=== PATIENT | female | born 2000 | race African-American/Black ===

== ENCOUNTER 2022-10-04 08:55 | Emergency (ER) | payer BC ==
[2022-10-04 09:48] LABS: #Eosinphils 0.2 10x3/uL (0.0-0.5); #Monocytes 0.3 10x3/uL (0.0-1.1); #Neutrophils 3.5 10x3/uL (1.5-8.4); %Basophils 0.4 % (0.0-2.0); %Eosinophils 3.4 % (0.0-6.0); %Lymphocytes 28.1 % (18.0-47.0); %Monocytes 5.4 % (0.0-10.0); %Neutrophils 62.5 % (40.0-75.0); Hemoglobin 13.2 g/dL (12.0-15.5); Mean Corpuscular HGB CONC 34.6 g/dL (32.0-36.0); Mean Corpuscular Hemoglobin 30.2 pg (27.0-33.0); Mean Corpuscular Volume 87.4 fl (81.6-98.3); Mean Platelet Volume 9.8 fl (7.4-10.4); Platelet Count 258 10x3/uL (150-450); RBC Distribution Width 12.1 % (11.5-14.5); Red Blood Cell (RBC) Count 4.37 10x6/uL (3.90-5.03); White Blood Cell (WBC) Count 5.6 10x3/uL (3.5-10.5)
[2022-10-04 10:01] LABS: ALT (SGPT) 18 U/L (8-55); AST (SGOT) 12 U/L (5-34); Albumin 3.8 g/dL (3.5-5.0); Alkaline Phosphatase 49 U/L (40-110); Anion Gap 14 mmol/L (10-20); BUN (Urea Nitrogen) 11 mg/dL (7.0-18.7); Bilirubin, Total 0.5 mg/dL (0.2-1.2); Calc. Creatinine Clearance 0 mL/min (70-130); Calcium 9.5 mg/dL (7.8-10.44); Carbon Dioxide 25 mmol/L (22-29); Chloride 104 mmol/L (98-107); Estimated GFR 121; Globulin 3.1 g/dL (2.4-3.5); Glucose 260 mg/dL (70-105); Magnesium 1.5 mg/dL (1.6-2.6); Potassium 4.7 mmol/L (3.5-5.1); Protein, Total 6.9 g/dL (6.0-8.3); Sodium 138 mmol/L (136-145)
== END 2022-10-04 10:15 | disposition home or self-care (01) ==
LOC: CSHERS 08:55
DX: R19.7 Diarrhea, unspecified (principal); E10.9 Type 1 diabetes mellitus without complications
CPT/HCPCS: 36415; 80053; 83735; 85025; 99284

== ENCOUNTER 2023-01-15 09:21 | Emergency (ER) | payer BC ==
[2023-01-15 10:52] LABS: BHCG - Serum Negative (NEGATIVE); Pregs Control Background? CLEAR/WHITE (CLR/WHITE); Pregs Control Bar Appear? YES (CONTROL BAR)
[2023-01-15] MEDS ORDERED: diphenhydrAMINE 50 MG/ML VIAL ONE (10:57)
[2023-01-15] MEDS ORDERED: Prochlorperazine 10 MG/2 ML VIAL ONE (10:57)
[2023-01-15 11:24] LABS: #Monocytes 0.3 10x3/uL (0.0-1.1); #Neutrophils 3.3 10x3/uL (1.5-8.4); %Basophils 0.5 % (0.0-2.0); %Eosinophils 0.7 % (0.0-6.0); %Lymphocytes 16.3 % (18.0-47.0); %Monocytes 7.5 % (0.0-10.0); %Neutrophils 74.8 % (40.0-75.0); Hemoglobin 14.4 g/dL (12.0-15.5); Mean Corpuscular HGB CONC 34.8 g/dL (32.0-36.0); Mean Corpuscular Hemoglobin 29.2 pg (27.0-33.0); Mean Platelet Volume 10.7 fl (7.4-10.4); Platelet Count 239 10x3/uL (150-450); RBC Distribution Width 11.6 % (11.5-14.5); Red Blood Cell (RBC) Count 4.93 10x6/uL (3.90-5.03); White Blood Cell (WBC) Count 4.4 10x3/uL (3.5-10.5)
[2023-01-15 11:54] LABS: Anion Gap 18 mmol/L (10-20); BUN (Urea Nitrogen) 11 mg/dL (7.0-18.7); Calc. Creatinine Clearance 0 mL/min (70-130); Calcium 9.2 mg/dL (7.8-10.44); Carbon Dioxide 22 mmol/L (22-29); Chloride 98 mmol/L (98-107); Estimated GFR 119; Glucose 267 mg/dL (70-105); Magnesium 1.4 mg/dL (1.6-2.6); Potassium 4.1 mmol/L (3.5-5.1); Sodium 134 mmol/L (136-145)
[2023-01-15] MEDS ORDERED: Magnesium 2 GM/50 ML BAG (IN WATER) ONE (12:07)
[2023-01-15] MEDS ORDERED: Propranolol HCl 20 MG TAB PO SCH (13:00)
== END 2023-01-15 15:14 | disposition home or self-care (01) ==
LOC: CSHERS 09:21
DX: I47.9 Paroxysmal tachycardia, unspecified (principal); G43.909 Migraine, unspecified, not intractable, without status migrainosus; R00.2 Palpitations; E10.9 Type 1 diabetes mellitus without complications
CPT/HCPCS: 71045; 80048; 83735; 84443; 84703; 85025; 93005; 96365; 96366; 96367; 96375; J0780; J1200; J3475

== ENCOUNTER 2023-07-14 09:12 | Outpatient (CLI) | payer BC | END 2023-07-14 09:13 | disposition home or self-care (01) | LOC: CSHRAD 09:12 | PROVIDERS: ATTEND Family Medicine | DX: M25.561 Pain in right knee (principal); M25.562 Pain in left knee; M17.11 Unilateral primary osteoarthritis, right knee ==

== ENCOUNTER 2023-07-29 09:02 | Observation (INO) | payer BC ==
[2023-07-29 09:21] LABS: Bilirubin 3+ (Negative); Blood, Urine 250 (Negative); Clarity Cloudy (Clear); Glucose, Urine (Dipstick) >=1000 mg/dL (Negative); Ketone, Urine 150 mg/dL (Negative); Leukocyte 500 (Negative); Nitrite Positive (Negative); Protein, Urine (Dipstick) 100 mg/dl (Neg-Trace); Specific Gravity, Urine 1.015 (1.005-1.030)
[2023-07-29 09:31] LABS: CAUTI Indications for Culture Dysuria,urgency,freq; RBC/HPF Greater than 50 HPF (0-3); WBC/HPF Greater Than 50 HPF (0-3)
[2023-07-29 09:32] LABS: Bacteria/HPF 3+ HPF (None Seen); Squamous Epithelial 0-3 HPF (0-3)
[2023-07-29 09:34] LABS: Urine Culture Reflex Yes Yes
[2023-07-29 09:50] LABS: #Eosinphils 0.1 10x3/uL (0.0-0.5); #Monocytes 0.5 10x3/uL (0.0-1.1); #Neutrophils 7.4 10x3/uL (1.5-8.4); %Basophils 0.4 % (0.0-2.0); %Monocytes 4.8 % (0.0-10.0); %Neutrophils 77.6 % (40.0-75.0); Hematocrit 41.4 % (34.9-44.5); Hemoglobin 14.1 g/dL (12.0-15.5); Mean Corpuscular HGB CONC 34.1 g/dL (32.0-36.0); Mean Corpuscular Hemoglobin 29.6 pg (27.0-33.0); Mean Corpuscular Volume 86.8 fl (81.6-98.3); Mean Platelet Volume 10.5 fl (7.4-10.4); Platelet Count 244 10x3/uL (150-450); RBC Distribution Width 11.8 % (11.5-14.5); Red Blood Cell (RBC) Count 4.77 10x6/uL (3.90-5.03); White Blood Cell (WBC) Count 9.6 10x3/uL (3.5-10.5)
[2023-07-29] MEDS ORDERED: cefTRIAXone (ROCEPHIN) 2 GM VIAL ONE (09:52)
[2023-07-29 10:05] LABS: ALT (SGPT) 12 U/L (8-55); AST (SGOT) 13 U/L (5-34); Albumin 3.7 g/dL (3.5-5.0); Alkaline Phosphatase 57 U/L (40-110); BUN (Urea Nitrogen) 9 mg/dL (7.0-18.7); Bilirubin, Total 0.3 mg/dL (0.2-1.2); Calc. Creatinine Clearance 0 mL/min (70-130); Calcium 9.1 mg/dL (7.8-10.44); Carbon Dioxide 21 mmol/L (22-29); Chloride Less than 65 mmol/L (98-107); Estimated GFR 105; Globulin 3.8 g/dL (2.4-3.5); Glucose 347 mg/dL (70-105); Protein, Total 7.5 g/dL (6.0-8.3)
[2023-07-29 10:18] LABS: Potassium 4.3 mmol/L (3.5-5.1); Sodium 135 mmol/L (136-145)
[2023-07-29 10:27] LABS: Actual Bicarbonate (HCO3v) 23.3 mEq/L (22-28); Base Excess -2.2 mEq/L (-2 - +2); Calcium, Ionized (venous) 1.13 mmol/L (1.16-1.32); Chloride (VBG) 98 mmol/L (98-106); Hematocrit-VBG 43 % (36.0-47.0); Hemoglobin (Hb) 14.6 g/dL (11.7-15.5); Potassium (VBG) 4.29 mmol/L (3.70-5.30); Puncture Site Other Site; Sodium 136 mmol/L (133-146); pH (venous) 7.357 (7.32-7.43)
[2023-07-29 10:34] LABS: Phosphorus 3.5 mg/dL (2.3-4.7)
[2023-07-29 10:35] LABS: Magnesium 1.4 mg/dL (1.6-2.6)
[2023-07-29 11:01] LABS: Anion Gap 19 mmol/L (10-20); BUN (Urea Nitrogen) 10 mg/dL (7.0-18.7); Calc. Creatinine Clearance 0 mL/min (70-130); Calcium 9.6 mg/dL (7.8-10.44); Carbon Dioxide 19 mmol/L (22-29); Chloride 101 mmol/L (98-107); Estimated GFR 106; Glucose 345 mg/dL (70-105); Potassium 4.4 mmol/L (3.5-5.1); Sodium 135 mmol/L (136-145)
[2023-07-29] MEDS ORDERED: Magnesium 2 GM/50 ML BAG (IN WATER) ONE (13:18)
[2023-07-29 13:46] LABS: BHCG - Serum Negative (NEGATIVE); Pregs Control Background? CLEAR/WHITE (CLR/WHITE); Pregs Control Bar Appear? YES (CONTROL BAR)
[2023-07-29 15:26] VITALS: BMI 39.3
[2023-07-29] MEDS ORDERED: Glucagon 1 MG/ML KIT IM PRN (15:47)
[2023-07-29] MEDS ORDERED: Dextrose 50% Abboject 50 ML SYRINGE SLOW IVP PRN (15:47)
[2023-07-29] MEDS ORDERED: Dextrose 5% in Water 1,000 ML IV PRN (15:47)
[2023-07-29] MEDS ORDERED: Acetaminophen 325 MG TAB PO PRN (15:47)
[2023-07-29] MEDS ORDERED: Metoclopramide HCl 10 MG/2 ML VIAL IVP PRN (15:49)
[2023-07-29] MEDS: Sodium Chloride 0.9% 1,000 ML IV SCH (17:24)
[2023-07-29] MEDS: HumaLOG 300 UNITS/3 ML VIAL SC PRN ×2 (17:25→21:11)
[2023-07-29 19:48] LABS: Anion Gap 14 mmol/L (10-20); BUN (Urea Nitrogen) 7 mg/dL (7.0-18.7); Calc. Creatinine Clearance 202 mL/min (70-130); Calcium 8.9 mg/dL (7.8-10.44); Carbon Dioxide 24 mmol/L (22-29); Chloride 103 mmol/L (98-107); Estimated GFR 122; Glucose 223 mg/dL (70-105); Magnesium 1.6 mg/dL (1.6-2.6); Potassium 3.8 mmol/L (3.5-5.1); Sodium 137 mmol/L (136-145)
[2023-07-29] MEDS ORDERED: Lantus 1000 UNITS/10 ML VIAL SC SCH (21:00)
[2023-07-29] MEDS: Famotidine 20 MG TAB PO SCH (21:09)
[2023-07-29] MEDS ORDERED: Potassium Chloride 20 MEQ TAB PO SCH (21:30)
[2023-07-29] MEDS ORDERED: Magnesium Sulfate/D5W 1 GM in Premix 1 BAG IVPB SCH (21:30)
[2023-07-29] MEDS ORDERED: Magnesium Sulfate/D5W 1 GM/100 ML BAG IVPB SCH (21:30)
[2023-07-29 23:21] LABS: Anion Gap 14 mmol/L (10-20); BUN (Urea Nitrogen) 7 mg/dL (7.0-18.7); Calc. Creatinine Clearance 208 mL/min (70-130); Calcium 8.7 mg/dL (7.8-10.44); Carbon Dioxide 22 mmol/L (22-29); Chloride 103 mmol/L (98-107); Estimated GFR 125; Glucose 215 mg/dL (70-105); Magnesium 1.6 mg/dL (1.6-2.6); Potassium 3.4 mmol/L (3.5-5.1); Sodium 136 mmol/L (136-145)
[2023-07-30] MEDS: Sodium Chloride 0.9% 1,000 ML IV SCH ×2 (00:44→09:36)
[2023-07-30] MEDS: HumaLOG 300 UNITS/3 ML VIAL SC PRN ×4 (01:33→16:24)
[2023-07-30 04:19] LABS: Anion Gap 13 mmol/L (10-20); BUN (Urea Nitrogen) 6 mg/dL (7.0-18.7); Calc. Creatinine Clearance 224 mL/min (70-130); Calcium 8.5 mg/dL (7.8-10.44); Carbon Dioxide 21 mmol/L (22-29); Chloride 106 mmol/L (98-107); Estimated GFR 127; Glucose 207 mg/dL (70-105); Magnesium 1.9 mg/dL (1.6-2.6); Potassium 3.8 mmol/L (3.5-5.1); Sodium 136 mmol/L (136-145)
[2023-07-30 04:26] LABS: #Eosinphils 0.1 10x3/uL (0.0-0.5); #Monocytes 0.5 10x3/uL (0.0-1.1); #Neutrophils 5.2 10x3/uL (1.5-8.4); %Basophils 0.5 % (0.0-2.0); %Eosinophils 1.6 % (0.0-6.0); %Lymphocytes 29.4 % (18.0-47.0); %Monocytes 5.8 % (0.0-10.0); %Neutrophils 62.5 % (40.0-75.0); Hematocrit 34.9 % (34.9-44.5); Mean Corpuscular HGB CONC 34.4 g/dL (32.0-36.0); Mean Corpuscular Hemoglobin 29.6 pg (27.0-33.0); Mean Corpuscular Volume 86.2 fl (81.6-98.3); Mean Platelet Volume 10.7 fl (7.4-10.4); Platelet Count 218 10x3/uL (150-450); RBC Distribution Width 11.9 % (11.5-14.5); Red Blood Cell (RBC) Count 4.05 10x6/uL (3.90-5.03); White Blood Cell (WBC) Count 8.3 10x3/uL (3.5-10.5)
[2023-07-30] MEDS ORDERED: Lantus 1000 UNITS/10 ML VIAL SC SCH (09:00)
[2023-07-30] MEDS: Famotidine 20 MG TAB PO SCH (09:30)
[2023-07-30] MEDS ORDERED: cefTRIAXone\\ROCEPHIN 2 GM in Sodium Chloride 0.9% 100 ML IVPB SCH ×2 (13:15→16:00)
[2023-07-30 17:59] VITALS: BP 115/72; TEMP 97.8
[2023-07-31] MEDS ORDERED: cefTRIAXone\\ROCEPHIN 2 GM in Sodium Chloride 0.9% 100 ML IVPB SCH (13:00)
== END 2023-07-30 18:35 | disposition home or self-care (01) ==
LOC: CSHERS 09:02 → CSHTELE 13:45 → CSHERS 14:40
PROVIDERS: ADMIT Internal Medicine; ATTEND Internal Medicine
DX: E11.65 Type 2 diabetes mellitus with hyperglycemia (principal); N39.0 Urinary tract infection, site not specified; Z79.4 Long term (current) use of insulin
CPT/HCPCS: 36415; 36416; 80048; 80053; 81001; 82010; 82805; 83735; 84100; 84703; 85025; 87040; 87077; 87086; 87186; 94760; 96376; G0378; J0696; J1815; J3475; J3490; J7050

== ENCOUNTER 2023-08-18 09:24 | Outpatient (CLI) | payer BC | END 2023-08-18 09:25 | disposition home or self-care (01) | LOC: CSHMRI 09:24 | PROVIDERS: ATTEND Orthopaedic Surgery | DX: M93.262 Osteochondritis dissecans, left knee (principal); M94.8X6 Other specified disorders of cartilage, lower leg ==

== ENCOUNTER 2023-10-20 12:26 | Emergency (ER) | payer BC ==
[2023-10-20] MEDS ORDERED: Ondansetron PF 4 MG/2 ML Vial ONE (13:21)
[2023-10-20 13:52] LABS: #Monocytes 0.4 10x3/uL (0.0-1.1); #Neutrophils 5.8 10x3/uL (1.5-8.4); %Basophils 0.4 % (0.0-2.0); %Eosinophils 0.5 % (0.0-6.0); %Lymphocytes 20.5 % (18.0-47.0); %Monocytes 5.5 % (0.0-10.0); %Neutrophils 72.7 % (40.0-75.0); Hematocrit 37.8 % (34.9-44.5); Hemoglobin 12.9 g/dL (12.0-15.5); Mean Corpuscular HGB CONC 34.1 g/dL (32.0-36.0); Mean Corpuscular Hemoglobin 29.6 pg (27.0-33.0); Mean Corpuscular Volume 86.7 fl (81.6-98.3); Mean Platelet Volume 10.1 fl (7.4-10.4); Platelet Count 330 10x3/uL (150-450); RBC Distribution Width 11.6 % (11.5-14.5); Red Blood Cell (RBC) Count 4.36 10x6/uL (3.90-5.03)
[2023-10-20 13:58] LABS: BHCG - Serum Negative (NEGATIVE); Pregs Control Background? CLEAR/WHITE (CLR/WHITE); Pregs Control Bar Appear? YES (CONTROL BAR)
[2023-10-20 14:06] LABS: ALT (SGPT) 14 U/L (8-55); AST (SGOT) 14 U/L (5-34); Alkaline Phosphatase 63 U/L (40-110); Anion Gap 20 mmol/L (10-20); BUN (Urea Nitrogen) 8 mg/dL (7.0-18.7); Bilirubin, Total 0.5 mg/dL (0.2-1.2); Calc. Creatinine Clearance 0 mL/min (70-130); Carbon Dioxide 22 mmol/L (22-29); Chloride 101 mmol/L (98-107); Estimated GFR 106; Globulin 4.3 g/dL (2.4-3.5); Glucose 256 mg/dL (70-105); Potassium 4.7 mmol/L (3.5-5.1); Protein, Total 8.3 g/dL (6.0-8.3); Sodium 138 mmol/L (136-145)
[2023-10-20 14:07] LABS: Lipase Less than 4 U/L (8-78)
[2023-10-20 14:14] LABS: Analyzer IN Cardio CS ER; Base Excess -3.1 mEq/L (-2 - +2); Calcium, Ionized (venous) 1.23 mmol/L (1.16-1.32); Chloride (VBG) 99 mmol/L (98-106); Hematocrit-VBG 45 % (36.0-47.0); Hemoglobin (Hb) 15.3 g/dL (11.7-15.5); Potassium (VBG) 4.68 mmol/L (3.70-5.30); Puncture Site Other Site; RapidComm Collect By LAB; Sodium 140 mmol/L (133-146); pH (venous) 7.325 (7.32-7.43)
== END 2023-10-20 17:08 | disposition home or self-care (01) ==
LOC: CSHERS 12:26
DX: R11.2 Nausea with vomiting, unspecified (principal); E10.9 Type 1 diabetes mellitus without complications; Z96.41 Presence of insulin pump (external) (internal)
CPT/HCPCS: 36415; 36416; 80053; 82010; 82805; 83690; 84703; 85025; 96361; 96374; J2405

== ENCOUNTER 2023-10-20 22:13 | Inpatient (IN) | payer BC ==
[2023-10-20] MEDS ORDERED: Ondansetron PF 4 MG/2 ML Vial ONE (22:50)
[2023-10-20 23:04] LABS: #Monocytes 0.4 10x3/uL (0.0-1.1); #Neutrophils 6.5 10x3/uL (1.5-8.4); %Basophils 0.4 % (0.0-2.0); %Eosinophils 0.4 % (0.0-6.0); %Lymphocytes 15.9 % (18.0-47.0); %Monocytes 4.2 % (0.0-10.0); %Neutrophils 78.7 % (40.0-75.0); Hematocrit 34.6 % (34.9-44.5); Hemoglobin 12.1 g/dL (12.0-15.5); Mean Corpuscular Hemoglobin 30.4 pg (27.0-33.0); Mean Corpuscular Volume 86.9 fl (81.6-98.3); Mean Platelet Volume 10.1 fl (7.4-10.4); Platelet Count 335 10x3/uL (150-450); RBC Distribution Width 11.6 % (11.5-14.5); Red Blood Cell (RBC) Count 3.98 10x6/uL (3.90-5.03); White Blood Cell (WBC) Count 8.3 10x3/uL (3.5-10.5)
[2023-10-20 23:14] LABS: ALT (SGPT) 12 U/L (8-55); AST (SGOT) 9 U/L (5-34); Albumin 3.8 g/dL (3.5-5.0); Alkaline Phosphatase 63 U/L (40-110); Anion Gap 23 mmol/L (10-20); BUN (Urea Nitrogen) 8 mg/dL (7.0-18.7); Bilirubin, Total 0.6 mg/dL (0.2-1.2); Calc. Creatinine Clearance 0 mL/min (70-130); Calcium 9.1 mg/dL (7.8-10.44); Carbon Dioxide 16 mmol/L (22-29); Chloride 103 mmol/L (98-107); Estimated GFR 103; Globulin 3.4 g/dL (2.4-3.5); Glucose 263 mg/dL (70-105); Potassium 4.4 mmol/L (3.5-5.1); Protein, Total 7.2 g/dL (6.0-8.3); Sodium 138 mmol/L (136-145)
[2023-10-20] MEDS ORDERED: Metoclopramide HCl 10 MG (2 mL) VIAL ONE (23:42)
[2023-10-21] MEDS ORDERED: INSULIN REGULAR IN 0.9 % NACL 100 UNITS/100 ML BAG ONE (00:19)
[2023-10-21] MEDS ORDERED: NS 0.9% w/ 20 MEQ KCL 1,000 ML IV PRN ×2 (03:07)
[2023-10-21] MEDS ORDERED: Sodium Chloride 0.9% 1,000 ML IV PRN ×4 (03:07)
[2023-10-21] MEDS ORDERED: Electrolyte Replacement Protocol IVPB SCH (03:07)
[2023-10-21] MEDS ORDERED: Dextrose 50% Abboject 50 ML SYRINGE SLOW IVP PRN ×2 (03:07→18:02)
[2023-10-21] MEDS ORDERED: Dextrose 5 %-0.45 % NaCl 1,000 ML IV PRN (03:07)
[2023-10-21 03:13] LABS: Anion Gap 20 mmol/L (10-20); BUN (Urea Nitrogen) 6 mg/dL (7.0-18.7); Calc. Creatinine Clearance 0 mL/min (70-130); Calcium 9.1 mg/dL (7.8-10.44); Carbon Dioxide 14 mmol/L (22-29); Chloride 108 mmol/L (98-107); Estimated GFR 117; Glucose 141 mg/dL (70-105); Lipase Less than 4 U/L (8-78); Magnesium 1.1 mg/dL (1.6-2.6); Phosphorus 2.2 mg/dL (2.3-4.7); Potassium 3.7 mmol/L (3.5-5.1); Sodium 138 mmol/L (136-145)
[2023-10-21] MEDS ORDERED: INSULIN REGULAR IN 0.9 % NACL 100 UNITS in Premix 1 BAG IVPB SCH (03:15)
[2023-10-21 03:48] LABS: Hematocrit 30.7 % (34.9-44.5); Hemoglobin 10.6 g/dL (12.0-15.5); Mean Corpuscular HGB CONC 34.5 g/dL (32.0-36.0); Mean Corpuscular Hemoglobin 29.5 pg (27.0-33.0); Mean Corpuscular Volume 85.5 fl (81.6-98.3); Mean Platelet Volume 9.9 fl (7.4-10.4); Platelet Count 279 10x3/uL (150-450); RBC Distribution Width 11.5 % (11.5-14.5); Red Blood Cell (RBC) Count 3.59 10x6/uL (3.90-5.03); White Blood Cell (WBC) Count 7.4 10x3/uL (3.5-10.5)
[2023-10-21 04:54] VITALS: BMI 41.4
[2023-10-21] MEDS: Enoxaparin 40 MG (0.4 mL) SYRINGE SC SCH (08:00)
[2023-10-21 08:12] LABS: Anion Gap 16 mmol/L (10-20); BUN (Urea Nitrogen) 5 mg/dL (7.0-18.7); Calc. Creatinine Clearance 226 mL/min (70-130); Calcium 8.4 mg/dL (7.8-10.44); Carbon Dioxide 17 mmol/L (22-29); Chloride 108 mmol/L (98-107); Estimated GFR 126; Glucose 172 mg/dL (70-105); Magnesium 1.4 mg/dL (1.6-2.6); Phosphorus 2.6 mg/dL (2.3-4.7); Potassium 3.5 mmol/L (3.5-5.1); Sodium 137 mmol/L (136-145)
[2023-10-21] MEDS: Magnesium 2 GM/50 ML(in water) 2 GM in Premix 1 BAG IVPB SCH ×2 (08:42→08:43)
[2023-10-21] MEDS ORDERED: Magnesium 2 GM/50 ML(in water) 2 GM in Premix 1 BAG IVPB SCH ×2 (09:00→18:00)
[2023-10-21] MEDS ORDERED: Potassium Bicarbonate/Cit Ac 20 MEQ TAB PO SCH (09:00)
[2023-10-21] MEDS: D5 1/2 NS w/20 mEq KCL 1,000 ML IV PRN ×2 (11:29→15:41)
[2023-10-21 12:00] LABS: Anion Gap 14 mmol/L (10-20); BUN (Urea Nitrogen) 4 mg/dL (7.0-18.7); Calc. Creatinine Clearance 233 mL/min (70-130); Calcium 8.7 mg/dL (7.8-10.44); Carbon Dioxide 19 mmol/L (22-29); Chloride 106 mmol/L (98-107); Estimated GFR 127; Glucose 188 mg/dL (70-105); Sodium 135 mmol/L (136-145)
[2023-10-21 17:31] LABS: Anion Gap 13 mmol/L (10-20); BUN (Urea Nitrogen) Less than 4 mg/dL (7.0-18.7); Calc. Creatinine Clearance 244 mL/min (70-130); Calcium 8.4 mg/dL (7.8-10.44); Carbon Dioxide 18 mmol/L (22-29); Chloride 109 mmol/L (98-107); Estimated GFR 128; Glucose 210 mg/dL (70-105); Magnesium 1.9 mg/dL (1.6-2.6); Potassium 4.3 mmol/L (3.5-5.1); Sodium 136 mmol/L (136-145)
[2023-10-21] MEDS ORDERED: Dextrose 5% in Water 1,000 ML IV PRN (18:02)
[2023-10-21] MEDS ORDERED: Glucagon 1 MG/ML KIT IM PRN (18:02)
[2023-10-21] MEDS ORDERED: Lantus 1000 UNITS/10 ML VIAL SC SCH (18:30)
[2023-10-21] MEDS: HumaLOG 300 UNITS/3 ML VIAL SC PRN (21:17)
[2023-10-22 04:10] LABS: Anion Gap 14 mmol/L (10-20); BUN (Urea Nitrogen) Less than 4 mg/dL (7.0-18.7); Calc. Creatinine Clearance 244 mL/min (70-130); Calcium 8.5 mg/dL (7.8-10.44); Carbon Dioxide 18 mmol/L (22-29); Chloride 108 mmol/L (98-107); Estimated GFR 128; Glucose 217 mg/dL (70-105); Potassium 4.2 mmol/L (3.5-5.1); Sodium 136 mmol/L (136-145)
[2023-10-22 04:14] LABS: Magnesium 1.9 mg/dL (1.6-2.6)
[2023-10-22] MEDS ORDERED: Magnesium 2 GM/50 ML(in water) 2 GM in Premix 1 BAG IVPB SCH (05:00)
[2023-10-22] MEDS: HumaLOG 300 UNITS/3 ML VIAL SC PRN ×2 (06:18→10:58)
[2023-10-22 07:46] VITALS: BP 140/113; TEMP 98
[2023-10-22] MEDS: Enoxaparin 40 MG (0.4 mL) SYRINGE SC SCH (08:10)
[2023-10-22] MEDS ORDERED: Lantus 1000 UNITS/10 ML VIAL SC SCH (09:00)
== END 2023-10-22 11:20 | disposition home or self-care (01) | DRG 638 ==
LOC: CSHERS 22:13 → CSHICU 10-21 00:37
PROVIDERS: ADMIT Family Medicine; ATTEND Internal Medicine
DX: E10.10 Type 1 diabetes mellitus with ketoacidosis without coma (principal); Z68.41 Body mass index [BMI] 40.0-44.9, adult; G43.909 Migraine, unspecified, not intractable, without status migrainosus; E86.1 Hypovolemia; E66.01 Morbid (severe) obesity due to excess calories; E86.0 Dehydration; D64.9 Anemia, unspecified; Z98.890 Other specified postprocedural states; Z79.4 Long term (current) use of insulin; R11.2 Nausea with vomiting, unspecified; E10.9 Type 1 diabetes mellitus without complications; Z96.41 Presence of insulin pump (external) (internal)
CPT/HCPCS: 36415; 36416; 80048; 80053; 82010; 82805; 83690; 83735; 84100; 84703; 85025; 85027; 96361; 96374; 96375; J1650; J1815; J2405; J2765; J3475; J3480

== ENCOUNTER 2023-11-21 19:18 | Emergency (ER) | payer BC | END 2023-11-21 20:46 | disposition home or self-care (01) | LOC: CSHERS 19:18 | DX: H10.9 Unspecified conjunctivitis (principal); E10.9 Type 1 diabetes mellitus without complications | CPT/HCPCS: 99282 ==